=== PATIENT | male | born 1970 | race Caucasian/White ===

== ENCOUNTER 2017-07-13 09:28 | Emergency (ER) | payer SELFPAY ==
[~2017-07-13] VITALS: Ht 182.9 cm; Wt 72.0 kg
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
[2017-07-13] MEDS ORDERED: MORPHINE SULFATE 4 MG/ML INJ IV PUSH ONE (09:45)
[2017-07-13 10:00] VITALS: RESP 19
[2017-07-13] MEDS ORDERED: MORPHINE SULFATE 2 MG/ML INJ IV PUSH ONE (10:00)
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
[2017-07-13] MEDS ORDERED: ZOFR4TAB3 SL (11:49)
[2017-07-13] MEDS ORDERED: AUGM875T3 PO (11:49)
== END 2017-07-13 12:41 | disposition home or self-care (01) ==
LOC: NEPE 09:28
DX: S00.83XA Contusion of other part of head, initial encounter (principal); J32.9 Chronic sinusitis, unspecified; Y00.XXXA Assault by blunt object, initial encounter
CPT/HCPCS: 70450; 70486; 72125; 96374; 99285; J2270